=== PATIENT | female | born 1970 | race Caucasian/White ===

== ENCOUNTER → 2017-05-01 | Outpatient (CLI) | payer BC ==
--- NOTE | ~2017-05-01 | ST ---
Unit #: [id number] #: [id number] Patient: GURDEEP BARBOZA [id number] [address] [address] [id number] O MR#: [id number] NAME: GURDEEP BARBOZA : 1970 SEX: F STUDY DATE/TIME: 05/01/2017 UNIT: [facility] ROOM: STUDY DESCRIPTION: Exercise cardiolite stress Attending Physician: Twin Robles M.D. Referring Physician: Twin Robles M.D. Primary Care Physician: Twin Robles M.D. CARDIOLOGY REPORT EXAM Exercise Cardiolite stress. DESCRIPTION Baseline EKG was normal sinus rhythm with a ventricular rate of 60 BPM, and left atrial abnormality, poor R wave progression. Patient walked on a the treadmill for 7 minutes and 10 seconds utilizing Ggii protocol, achieving a workload of 8.60 METs. 89% of maximum target heart rate achieved at 155 BPM with a maximum blood pressure response of 172/90 mmHg. EKG during the test showed some nonspecific changes, otherwise unremarkable. IMPRESSION 1. Functional class 3 with a workload of 8.60 METs. 2. Patient walked for 7 minutes and 10 seconds, achieving 89% of maximum target heart rate at 155 BPM with a blood pressure response of 172/90 mmHg. 3. EKG during the test showed some nonspecific ST-T wave abnormality in anterolateral leads. Otherwise unremarkable. 4. Patient had no complaints of chest pain, palpitations or dizziness. Had increased shortness of breath and fatigueness, which resolved during recovery phase. 5. Cardiolite was then injected at maximum target heart rate. Radionuclide test pending. Please correlate with nuclear images. Dictated by... Maddie Weston A.P.R.N. for Julia Ng/belinda TD: 05/01/2017 11:07 JOB #: [id number] Unit #: [id number] #: [id number] Patient: GURDEEP BARBOZA CARDIOLOGY REPORT Page 1 of 1 X Maddie Weston APRN CARDIOLOGY REPORT
--- NOTE | ~2017-05-01 | US128 ---
[id number] [facility] [address] [facility]. [place], [place] [address] [id number] O MR#: [id number] Acc #: [id number] NAME: GURDEEP BARBOZA : 1970 SEX: F STUDY DATE/TIME: 05/01/2017 8:59 UNIT: [facility] ROOM: STUDY DESCRIPTION: Thyroid Attending Physician: Twin Robles M.D. Referring Physician: Twin Robles M.D. Ordering Physician: Twin Robles M.D. Primary Care Physician: Twin Robles M.D. MEDICAL IMAGING REPORT This report is preliminary unless electronic signature is present EXAM Ultrasound of the thyroid gland INDICATION Excessive weight gain over 5 months as well as thyromegaly and difficulty swallowing. TECHNIQUE Sung-scale and color Doppler sonographic images were obtained through the thyroid gland. FINDINGS Thyroid gland actually measures within normal size limits. Right lobe measures 2.6 x 1.8 x 1.4 cm. Left lobe measures 2.5 x 1.5 x 0.9 cm and the isthmus measures about 3.0 mm in thickness. I think thyroid parenchyma is mildly heterogeneous. There is a hypoechoic area seen within the right lobe of the thyroid gland measuring 6.0 x 3.0 x 4.0 mm. Credit Historian denotes it as a cyst. However this is not a simple cyst based upon submitted imaging. No color-Doppler flow is seen within it. IMPRESSION 1. Thyroid gland measures within normal size limits. 2. Tiny hypoechoic nodule seen within the right lobe of the thyroid gland. I would suggest short-term sonographic followup in 6 months. Dictated by... Kayli Durand M.D. THIS IS AN ELECTRONICALLY VERIFIED REPORT Kayli Durand M.D. at 05/01/2017 4:58 PM CORNELIA/candace TD: 05/01/2017 12:07 JOB #: [id number] MEDICAL IMAGING REPORT Page 1 of 1 COPY
--- NOTE | ~2017-05-01 | TH ---
Unit #: [id number] #: [id number] Patient: GURDEEP BARBOZA [id number] [address] [address] [id number] O MR#: [id number] NAME: GURDEEP BARBOZA : 1970 SEX: F STUDY DATE/TIME: 05/01/2017 UNIT: [facility] ROOM: STUDY DESCRIPTION: Exercise stress test - Nuclear Attending Physician: Twin Robles M.D. Referring Physician: Twin Robles M.D. Primary Care Physician: Twin Robles M.D. CARDIOLOGY REPORT PROCEDURE PERFORMED Exercise Cardiolite stress test - Nuclear portion. PROCEDURE Using technetium 99m-labeled Cardiolite, rest and stress SPECT images were obtained. Multiple SPECT images were obtained in various views, including horizontal and vertical long axis and short axis views of the left ventricle. Images were obtained by gated SPECT method. The patient was administered 10.62 mCi of Cardiolite at rest. The patient was administered 33 mCi of Cardiolite at peak exercise. Total exercise time is 7 minutes and 10 seconds. On the stress images, there is normal perfusion noted. The rest images show normal perfusion. Comparing the rest and stress images, there is no stress-induced ischemia noted. The left ventricular ejection fraction is calculated to be 74%. There is no focal wall motion abnormality seen. CONCLUSION 1. No stress-induced ischemia noted. 2. The left ventricular ejection fraction is calculated to be 74%. 3. There is no focal wall motion abnormality seen. 4. Normal exercise Cardiolite stress test. Dictated by... Julia Ng/adelfo TD: 05/01/2017 15:51 JOB #: [id number] CARDIOLOGY REPORT Page 1 of 1 X Renae Metcalf MD <ELECTRONICALLY SIGNED> 06/15/17 1524 CARDIOLOGY REPORT
== END | disposition home or self-care (01) ==
LOC: CNUC 08:20
DX: R07.9 Chest pain, unspecified (principal); R94.31 Abnormal electrocardiogram [ECG] [EKG]; E01.0 Iodine-deficiency related diffuse (endemic) goiter
CPT/HCPCS: 76536; 78452; 93017; A9500; J2785